=== PATIENT | female | born 1940 | race Caucasian/White ===

== ENCOUNTER 2018-03-16 07:40 | Day surgery (SDC) | payer OTHER ==
[~2018-03-16] VITALS: Ht 162.6 cm; Wt 51.2 kg
[~2018-03-16 07:40] MED LIST: ADVAIR 500/501 DISK IH; ASPIRIN81 M2 PO; ATORVASTATIN CA20 MG PO; CYCLOBENZAPRINE5 MG PO; LO-DOSE ASPIRIN81 M1 PO; NORCO 5/3251 TABLET PO; PRAVASTATIN SOD20 MG PO; PREDNISONE5 MG PO; PRILOSEC40 MG PO; PROAIR HFA8.5 GM IH; SINGULAIR10 MG PO; SPIRIVA1 INHALATI IH; SYMBICORT60 INHALAT IH
[2018-03-16 08:09] LABS: HEMATOCRIT 45.4 % (36.0-46.0); HEMOGLOBIN 14.2 G/DL (11.9-15.5); MCHC 31.3 G/DL (30.0-36.0); MCV 92.8 FL (83-99); PLATELET COUNT 268 K/uL (156-360); RED BLOOD COUNT 4.89 M/uL (3.80-5.20); WHITE BLOOD COUNT 11.1 K/uL (4.1-10.2)
[2018-03-16 08:10] VITALS: BP 168/77
[2018-03-16 08:37] VITALS: BP 168/77
[2018-03-16 08:48] LABS: CHLORIDE 100 MEQ/L (99-109); GFR ESTIMATE (CALCULATED) 57 mL/min/; GLUCOSE 110 mg/dL (70-99); POTASSIUM 4.4 MEQ/L (3.7-5.4); SODIUM 140 MEQ/L (136-147); UREA NITROGEN (BUN) 15 mg/dL (9-23)
[2018-03-16] MEDS ORDERED: NORCO 7.5/321 TABLET PO (11:11)
[2018-03-16 12:30] VITALS: BP 138/94
[2018-03-16 13:28] VITALS: BP 126/58
[2018-03-16 14:12] VITALS: BP 136/64
== END 2018-03-16 14:15 | disposition home or self-care (01) ==
LOC: SDC 07:40
PROVIDERS: Neurological Surgery
PROC: 0QS03ZZ Reposition Lumbar Vertebra, Percutaneous Approach (ICD-10-PCS; principal; 2018-03-16)
PROC: 0QU03JZ Supplement Lumbar Vertebra with Synthetic Substitute, Percutaneous Approach (ICD-10-PCS; principal; 2018-03-16)
DX: M48.56XA Collapsed vertebra, not elsewhere classified, lumbar region, initial encounter for fracture (principal); J44.9 Chronic obstructive pulmonary disease, unspecified; E78.5 Hyperlipidemia, unspecified; F17.210 Nicotine dependence, cigarettes, uncomplicated; Z79.82 Long term (current) use of aspirin; Z79.52 Long term (current) use of systemic steroids
CPT/HCPCS: 80048; 85027; 94640; C1713; J0131; J0690; J1170; J2405; J3010